=== PATIENT | male | born 2000 | race Caucasian/White ===

== ENCOUNTER 2020-11-06 17:43 | Emergency (ER) | payer BC, SELFPAY ==
[2020-11-06 18:18] VITALS: BP 119/73; PULSE 63; RESP 15; TEMP 36.3; O2SAT 100; BMI 19.3
[2020-11-06 18:23] VITALS: RESP 18
--- NOTE | 2020-11-06 18:27 | CTR_ITS ---
PROCEDURE INFORMATION: Exam: CT Head Without Contrast Exam date and time: 11/06/2020 6:31 PM Age: 20 years old Clinical indication: Injury or trauma; Fall; Concussion/head injury; Consciousness not specified; Additional info: Head injury, possible seizure after TECHNIQUE: Imaging protocol: Computed tomography of the head without contrast. Radiation optimization: All CT scans at this facility use at least one of these dose optimization techniques: automated exposure control; mA and/or kV adjustment per patient size (includes targeted exams where dose is matched to clinical indication); or iterative reconstruction. COMPARISON: No relevant prior studies available. RADIATION DOSE METRICS: Total DLP (mGy-cm): 1541.53 FINDINGS: Brain: Normal. No hemorrhage. Unremarkable white matter. No mass effect. Cerebral ventricles: No ventriculomegaly. Paranasal sinuses: Visualized sinuses are unremarkable. No fluid levels. Mastoid air cells: Visualized mastoid air cells are well aerated. Bones/joints: Unremarkable. No acute fracture. Soft tissues: Unremarkable. CT/CT head wo con* [id number] IMPRESSION: No acute intracranial abnormality. Radiation Dose CTDIVOL = (mGy): DLP = 1541.53 (mGy-cm)
--- NOTE | 2020-11-06 18:35 | W.ED.HEATRA ---
HPI - Head Injury General: Chief complaint: Head Injury Stated complaint: head injury, seizure Time Seen by Provider: 11/06/20 18:19 History of Present Illness: HPI Narrative: Patient here because he cut his finger and it hurt and he passed out and he fell backwards it into a board with his head. Eyes rolled back in the head. Patient is dad reported events MD Complaint: head injury Onset (ago): minute(s) Mechanism of Injury: fall Place: home Loss of Consciousness: yes (After he is cut his finger apparently had a vasovagal episode) and unwitnessed Location of injury: occipital Severity: mild Severity scale (1-10): 1 Associated symptoms: Reports no associated symptoms; Deny nausea or vomiting Review of Systems Const: Denies: fever(s), chills or body aches Eyes: Denies: change in vision or blurry vision ENMT: Denies: throat pain or nasal congestion Card: Denies: chest pain or dyspnea on exertion Resp: Denies: dyspnea, productive cough or non-productive cough GI: Denies: abdominal pain, nausea or vomiting : Denies: difficulty urinating Musc: Denies: extremity pain Skin/Breast: Reports: other (Small laceration left pointer finger not actively bleeding, cut with wire p); Denies: rash Neuro: Reports: seizure-like activity (After passing out after cutting his finger and seeing the blood and experie) and other; Denies: headache(s) Psych: Denies: anxiety or depression Donny/Lymph: Denies: easy bruising Physical Exam Const: COMMON NORMALS: no acute distress, average body habitus and patient oriented x3 HENMT: COMMON NORMALS: normocephalic HEAD & SCALP: normal to inspection and normocephalic FACE & SINUS: normal facial exam Eye: COMMON NORMALS: conjunctivae normal GENERAL EYE: appearance normal, both eyes and all related structures CONJUNCTIVA: Yes conjunctivae normal Neck/C-Spine: COMMON NORMALS: no JVD Chest: COMMONS NORMALS: normal inspection of the chest Resp: COMMON NORMALS: normal respiratory effort and clear to auscultation bilaterally AUSCULTATION: clear to auscultation bilaterally Cardio: COMMON NORMALS: no JVD, regular rate and regular rhythm RATE: regular rate RHYTHM: regular rhythm GI: COMMON NORMALS: Normal to inspection, nondistended, normoactive bowel sounds present Extremity: COMMON NORMALS: normal to inspection and full ROM Neuro: COMMON NORMALS: patient oriented x3, CN's II-XII intact bilaterally, moves all extremities, no focal motor deficits and no sensory deficits noted Skin: OTHER: Left index finger with small laceration distal aspect close not bleeding intact Course Vital Signs: Vital signs: Vital Signs Temperature 98 F 11/06/20 19:17 Pulse Rate 72 11/06/20 19:17 Respiratory Rate 16 11/06/20 19:17 Blood Pressure 124/62 11/06/20 19:17 Pulse Oximetry 99 11/06/20 19:17 MDM - Head Injury MDM Narrative: Medical decision making narrative: Patient presents here with a vasovagal type episode. Did not appear to be a seizure activity. Radiology test was normal. Finger shows small abrasion/laceration. Patient denied wanting care for that. Patient mother provided instructions for closed head injury. Patient does live at home with parents. They will watch him [place] the mother said. Discharge Plan Discharge Patient Disposition: Home Clinical Impression: Vasovagal episode Closed head injury Qualifiers: Encounter type: initial encounter Qualified Code(s): S09.90XA - Unspecified injury of head, initial encounter Condition: Stable Discharge Orders: Discharge ED (Routine); Ordered 11/06/20 Ordered By: Kunal Gilbert Discharge Diet: Usual diet Discharge Activity: Increase activity as tolerated Patient Instructions: Syncope (ED), Minor Head Injury (ED) Activity Restrictions/Additional Instructions: Follow-up your your primary care provider if worsening of symptoms. Coding Level of Care Code ED Substitute Bus Driver for Darrius Rm Exam Comprehensive
[2020-11-06 19:17] VITALS: BP 124/62; PULSE 72; RESP 16; TEMP 36.6; O2SAT 99
== END 2020-11-06 19:19 | disposition home or self-care (01) ==
PROVIDERS: Emergency Provider Nurse Practitioner Family
DX: S09.8XXA Other specified injuries of head, initial encounter (principal); R55 Syncope and collapse; W22.8XXA Striking against or struck by other objects, initial encounter
CPT/HCPCS: 70450; 99282